=== PATIENT | female | born 1975 | race Caucasian/White ===

== ENCOUNTER 2017-10-03 14:10 | Observation (INO) ==
--- NOTE | 2017-10-03 14:42 | EKG ---
[address] [place] [address] [place] [address] Measurements Intervals [place] Rate: 96 P: 31 TN: 152 QRS: 35 QRSD: 126 T: 48 QT: 337 QTc: 391 Interpretive Statements SINUS RHYTHM RIGHT BUNDLE BRANCH BLOCK [120+ ms QRS DURATION, UPRIGHT V1, 40+ ms S IN I/aVL/V4/V5/V6] No previous ECG available for comparison Electronically Signed On 10-04-17 09:35:33 [facility] by Ayden Marcano [email or web address]
[2017-10-03] MEDS ORDERED: Sodium Chloride 0.9% 1,000 ML PRIMARY IV ONE (14:53)
[2017-10-03] MEDS ORDERED: MORPHINE SULFATE 4 MG/1 ML IVP ONE (14:53)
[2017-10-03] MEDS ORDERED: NORMAL SALINE 10 ML SYRINGE FLUSH IVP PRN ×2 (14:53→17:45)
[2017-10-03 15:30] LABS: BASOPHILS # (AUTO) 0.03 10*3/UL; BASOPHILS % (AUTO) 0.2 % (0-1); EOSINOPHILS # (AUTO) 0.03 10*3/UL; EOSINOPHILS % (AUTO) 0.2 % (0-8); Hematocrit [HCT] 43.3 % (37.0-47.0); Hemoglobin [HGB] 14.9 g/dL (12.0-16.0); LYMPHOCYTES # (AUTO) 1.25 10*3/uL; MEAN CORPUSCULAR HEMOGLOBIN 28.4 PG (27-31); MEAN CORPUSCULAR HGB CONC 34.4 g/dL (33-37); MEAN CORPUSCULAR VOLUME 82.5 FL (81-99); MEAN PLATELET VOLUME 10.4 FL (7.4-12.2); MONOCYTES # (AUTO) 0.69 10*3/UL (0.3-0.8); MONOCYTES % (AUTO) 4.6 % (5-15); NEUTROPHILS # (AUTO) 13.06 10*3/UL; NEUTROPHILS % (AUTO) 86.4 % (50-80); RED BLOOD COUNT 5.25 10^6/uL (4.20-5.40)
[2017-10-03 15:39] LABS: PLATELET MORPHOLOGY COMMENT NORMAL MORPHOLOGY (NORM); RBC MORPHOLOGY COMMENT NORMAL MORPHOLOGY (NORM); WBC MORPHOLOGY COMMENT NORMAL MORPHOLOGY (NORM)
[2017-10-03 15:42] LABS: BLOOD UREA NITROGEN 18 mg/dL (7-22); SERUM ALBUMIN 4.9 g/dL (3.5-4.8)
--- NOTE | 2017-10-03 15:53 | DI ---
EXAM: XR Right Tibia and Fibula, 2 Views CLINICAL HISTORY: Trauma: TECHNIQUE: Frontal and lateral views of the right tibia and fibula. COMPARISON: No relevant prior studies available. FINDINGS: Bones/joints: Mild ankle and calcaneal spurring. No acute fracture. No dislocation. Soft tissues: Unremarkable. No radiopaque foreign body. IMPRESSION: No fracture
[2017-10-03] MEDS ORDERED: cefTRIAXone Inj 2 GM in Sodium Chloride 0.9% 100 ML IV ONE (16:38)
--- NOTE | 2017-10-03 17:27 | PDOC ---
HPI - History of Present Illness Date of Service: 10/03/17 Time of Service: 18:00 Chief Complaint: Swelling, redness and pain right lower extremity 4 days duration History of Present Illness: This is a 42 years old female with medical history significant for history of hypertension, previous right ankle surgery who apparently hit her right leg accidentally against the door of the washing machine was uncomfortable after that for about 2 or 3 days but then she started to notice some swelling redness and warmth to the leg mostly yesterday. Today she is noticing that it hurts when she put weight on it, she had some fever and because of that she came into the ER evaluation revealed cellulitis was given antibiotics and was admitted. She rates her pain currently 5 out of 10. There was no drainage. Past Medical History Medical History: 1. Hypertension she had for 13 years on oral antihypertensive medications Surgical History: 1. History of for hysterectomy and the uterine ablations before. 2. History of bilateral carpal tunnel surgeries. 3. History of tonsillectomy. 4. History of surgery to the right ankle 2014. Pertinent Family History: History of hypertension in father Past Social History: Does not smoke, occasionally drink, no drugs. Tobacco Use: Former Smoker In the Past 12 Months, Have Used or Abuse Any of the Following Substance: None Alcohol Use: Occasionally Medication / Allergies Home Medications: Home Medications Medication Instructions Recorded Confirmed Type Vitamin B Complex 1 ea PO QD tab 11/20/14 10/03/17 History Estropipate 1 tab PO QD #90 tab 12/30/16 10/03/17 Rx Lisinopril/Hydrochlorothiazide 1 tab PO QD #90 tab 12/30/16 10/03/17 Rx [Lisinopril-Hctz 20-25 Mg Tab] Allergies/Adverse Reactions: Allergies 3 Allergy/AdvReac Type Severity Reaction Status Date / Time No Known Drug Allergies Allergy NOT Verified 10/03/17 17:40 APPLICABLE Review of Systems - Review of Systems All Systems: Reviewed & No Additional Complaints Except as Stated Exam - General General Appearance: No Acute Distress, Cooperative, Obese - Head Head Exam: Normal Inspection, Atraumatic - Eye Eye Exam: POSITIVE: Normal Appearance - ENT ENT Exam: POSITIVE: Normal Exam - Neck Neck Exam: Normal Inspection - Respiratory Respiratory Exam: POSITIVE: Clear to Auscultation - Bilaterally - Cardiovascular Cardiovascular Exam: POSITIVE: RRR - GI/Abdominal GI/Abdominal Exam: POSITIVE: Normal Bowel Sounds, Non Tender, Non Distended, Soft, No Organomegaly Additional GI/Abdominal Exam Details: Some mild lymph node enlargement in the right inguinal area of somewhat tender. - Rectal Rectal Exam: POSITIVE: Deferred - External Exam: POSITIVE: Deferred - Extremities Additional Extremities Exam Details: An area of redness, warmth noted on the top of the right foot in addition also on the lateral aspect of the right leg. It is tender is no fluctuation no drainage. There is swelling also noted. - Back Back Exam: POSITIVE: Normal Inspection - Neurological Neurological Exam: POSITIVE: Alert, Oriented x 3, CN II-XII Intact, Speech Intact / Clear, Moves All Extremities Equally - Psychiatric Psychiatric Exam: POSITIVE: Normal Affect - Integumentary Additional Integumentary Exam Details: An area of cellulitis in the right lower extremity also with the swelling dorsum of the right Results - Labs CBC and BMP: 10/03/17 15:20 10/03/17 15:20 Assessment and Plan - Patient Problems (1) Cellulitis of right leg Current Visit: Yes Status: Acute Comment: She was started on antibiotics with Rocephin will continue with it. Will put her on some IV fluid. Repeat labs in the morning. will check MRSA nasal carraiage. Code(s): L03.115 - Cellulitis of right lower limb (2) Hypertension Current Visit: Yes Status: Acute Comment: We'll see what her blood pressure tomorrow and then will decide if we can restart her blood pressure medications Code(s): I10 - Essential (primary) hypertension
[2017-10-03] MEDS ORDERED: LIDOCAINE W/ SODIUM BICARB 0.5 ML SYR SUBD PRN (17:45)
[2017-10-03] MEDS ORDERED: CALCIUM CARBONATE 500 MG (TUMS) CHEWABLE TABLET PO PRN (17:45)
[2017-10-03] MEDS ORDERED: ONDANSETRON 4 MG/2 ML VIAL IVP PRN (17:45)
[2017-10-03] MEDS ORDERED: DOCUSATE 100 MG CAPSULE PO PRN (17:45)
[2017-10-03] MEDS: Lactated Ringers 1,000 ML PRIMARY IV SCH (18:04)
[2017-10-03] MEDS: ACETAMINOPHEN 325 MG TABLET PO PRN ×2 (18:07→23:02)
[2017-10-03] MEDS ORDERED: HYDROcodone-APAP 5 MG -325 MG TABLET PO PRN (18:13)
[2017-10-03] MEDS ORDERED: KETOROLAC 15 MG/1 ML VIAL IVP PRN (18:13)
[2017-10-03] MEDS ORDERED: Lactated Ringers 500 ML PRIMARY IV ONE (19:10)
[2017-10-04] MEDS: Lactated Ringers 1,000 ML PRIMARY IV SCH ×3 (01:27→15:12)
--- NOTE | 2017-10-04 02:57 | PDOC ---
Lower Extremity Problem HPI - General Chief Complaint: General Medical Stated Complaint: right leg pain, heart racing Date Seen by Provider: 10/03/17 Time Seen by Provider: 14:30 Source: POSITIVE: Patient Exam Limitations: POSITIVE: No limitations Nurse's Notes Reviewed & Considered: Yes - History of Present Illness Initial Comments: The patient is a 42-year-old female. She states that she struck her right lower leg against a podiatric technician approximately 4 days ago. Over the last 2 days she has developed painful redness and swelling and warmth over the anterior and lateral aspect of her right lower leg, around the site of trauma. The apparent cellulitis has extended into the dorsum of her right foot. She also complains of some pain in the right groin. She complains of fever and myalgia. Body Location Affected: REPORTS: Upper Extremity (R) (As above) Timing: REPORTS: Gradual, Getting Worse Duration: <1 week (4 days) Severity: Moderate Recent Injury: REPORTS: Yes (As above) Context of Injury: REPORTS: Direct Blow Location at Time of Onset: REPORTS: Work Quality: REPORTS: "Pain" (Pain to right lower leg and groin; diffuse myalgia) Modifying Factors: REPORTS: Other (Pain is exacerbated by pressure and direct palpation) Associated Symptoms: DENIES: Chest Pain, Shortness of Breath, Rapid Heart Rate, Fainting, Other Similar Symptoms Previously: No Recent Care Received: REPORTS: Denies Any Prior Injuries Related to Current Complaint?: No - Patient Home Medications Home Medications: Home Medications Vitamin B Complex 1 ea PO QD tab 11/20/14 Estropipate 1 tab PO QD #90 tab 12/30/16 Lisinopril/Hydrochlorothiazide [Lisinopril-Hctz 20-25 Mg Tab] 1 tab PO QD #90 tab 12/30/16 - Patient Allergies Allergies/Adverse Reactions: Allergies 3 Allergy/AdvReac Type Severity Reaction Status Date / Time No Known Drug Allergies Allergy NOT Verified 10/03/17 17:40 APPLICABLE Past Medical History - heen HEENT History: Denies History Cardiovascular History: Hypertension, Hyperlipidemia Respiratory History: Snoring Gastrointestinal History: GERD Additional Gastrointestinal History: OCCASIONAL HEARTBURN Genitourinary History: Denies History Endocrine History: Denies History Musculoskeletal History: Joint Pain, Other (please comment) Prosthesis or Implant: Yes (RIGHT ANKLE) Additional Musculoskeletal History: RIGHT ANKLE PAIN Neurological History: Denies History Blood Disorders: Denies History Psychiatric History: Depression History of Sexually Transmitted Diseases: No Female Reproductive History: Tubal Ligation, Hysterectomy Obstetrical History: Denies History Cancer History: Denies History In Past Year Been Physically Harmed or Verbally Threatened: No History of MDRO: No History of Other Communicable Diseases: No Tobacco Use: Former Smoker Alcohol Use: Occasionally Type of alcohol normally used: Beer In the Past 12 Months, Have Used or Abuse Any Substance: None Previous Surgical History: Yes Type / Date of Surgery: RIGHT ANKLE SX/ ENDOMETRIAL ABLATION/ HYST WITH BSO/ TONSILLECTOMY/ RIGHT INDEX FINGER CYST EXCISION/ CERCLAGE/AJ CTR 2014/TUBAL/ Anesthesia Reactions: No Malignant Hyperthermia: No Significant Family History: Hypertension Additional Family History: HYPERLIPIDEMIA Past Medical History Reviewed: Reviewed - No Changes ROS - Limitations ROS Limitations: No Limitations Constitution: REPORTS: Chills, Fever Cardiovascular: REPORTS: Denies Cardiac Symptoms Respiratory: REPORTS: Denies Resp Symptoms Neurological: REPORTS: Denies Neuro Symptoms Gastrointestinal: REPORTS: Denies GI Symptoms Endocrine: REPORTS: Denies Symptoms Musculoskeletal: REPORTS: Recent Injury, Other (Pain right lower leg) Genitourinary: REPORTS: Denies Symptoms Eyes: REPORTS: Denies Symptoms ENT: REPORTS: Denies Symptoms Skin: REPORTS: Other (Cellulitis right lower leg, anterior and lateral aspects and dorsum right foot) Lympathic: REPORTS: Swollen Glands (Right inguinal) Immunologic: POSITIVE: Denies Symptoms Psychiatric: POSITIVE: Denies Psych Symptoms Lower Ext Problem Exam - General Appearance General Appearance: POSITIVE: Alert, Cooperative, No Acute Distress, No Evidence of Trauma - Extremities Lower Extremity: POSITIVE: Tenderness, Swelling (Erythema with warmth and tenderness on palpation anterior and lateral aspect of right lower leg and dorsum of foot.) Joint Exam: POSITIVE: Joints Normal, Normal ROM, Normal Gait, Normal Weight Bearing Vascular: POSITIVE: Full Pulses. 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 Nml, Pharynx Inspect. Nml, PERRL, EOMI - Respiratory / CVS Respiratory / CVS: POSITIVE: No Respiratory Distress, Breath Sounds Normal, Regular Rate/Rhythm, Heart Sounds Normal Peripheral Pulses: Radial (R): 2+, Radial (L): 2+, Dorsalis-pedis (R): 2+, Dorsalis-pedis (L): 2+ - Abdomen Abdomen: Soft: (All Quadrants), Normal Bowel Sounds: (All Quadrants), Denies Tenderness: (All Quadrants), No Splenomegaly: (All Quadrants), No Hepatomegaly: (All Quadrants), No Guarding: (All Quadrants), No Rebound: (All Quadrants), No Palpable Pulse: (All Quadrants), No Palpabale Mass: (All Quadrants), No Distention: (All Quadrants), No Rigidity: (All Quadrants) Images - Uploaded Photos Uploaded Photos: - Lower Extremities Lower Extremities: 1 - Cellulitis 2 - Discomfort on palpation with adenopathy Lower Ext Problem Progress - Results Reviewed by me Xrays/CTs/US Reviewed by me: Yes Discussed with Radiologist: Yes Radiology Findings: X-ray right tib-fib normal Lab Results Reviewed by Me: Yes (influenza negative, lactate 1.7, CRP 3.1) CBC and BMP: 10/03/17 15:20 10/03/17 15:20 EKG Interpreted/Reviewed By Me:: Yes EKG Interpretation:: POSITIVE: Normal Sinus Rhythm, Normal Intervals, Normal [place], Normal QRS, Normal ST/T, Abnormal EKG (Sinus tachycardia). NEGATIVE: Normal Rate (96/m) - Patient's Progress School/Work Release Addressed: POSITIVE: Not Applicable Re-Examine Time: 16:40 Re-Examine Comment: Case discussed with hospitalist; patient admitted. 2 g Rocephin ordered IV Status: POSITIVE: Unchanged, Re-Examined - Consult Consult (If Yes, Name of Consulting MD & Time Called): Yes (Dr. Michael, hospitalist, [id number]) Consulting MD will see pt:: POSITIVE: [facility] Admit Counseled: POSITIVE: Patient, Family, RE: Lab Results, RE: DX, RE: Need for F/U Patient Care Time - Estimated PCT Patient Care Time (In Minutes): 50 Vital Signs - VS Reviewed Vital Signs Reviewed: Yes Discharge Clinical Impression: Laceration of face Discharge Disposition: Discharged to Home Condition: Stable
[2017-10-04 04:55] LABS: BASOPHILS # (AUTO) 0.03 10*3/UL; BASOPHILS % (AUTO) 0.3 % (0-1); EOSINOPHILS # (AUTO) 0.01 10*3/UL; EOSINOPHILS % (AUTO) 0.1 % (0-8); Hematocrit [HCT] 38.4 % (37.0-47.0); Hemoglobin [HGB] 12.9 g/dL (12.0-16.0); LYMPHOCYTES # (AUTO) 1.44 10*3/uL; MEAN CORPUSCULAR HEMOGLOBIN 27.9 PG (27-31); MEAN CORPUSCULAR HGB CONC 33.6 g/dL (33-37); MEAN CORPUSCULAR VOLUME 83.1 FL (81-99); MEAN PLATELET VOLUME 10.8 FL (7.4-12.2); MONOCYTES # (AUTO) 0.59 10*3/UL (0.3-0.8); MONOCYTES % (AUTO) 5.8 % (5-15); NEUTROPHILS # (AUTO) 8.08 10*3/UL; NEUTROPHILS % (AUTO) 79.4 % (50-80); RED BLOOD COUNT 4.62 10^6/uL (4.20-5.40)
[2017-10-04 05:02] LABS: PLATELET MORPHOLOGY COMMENT NORMAL MORPHOLOGY (NORM); RBC MORPHOLOGY COMMENT NORMAL MORPHOLOGY (NORM); WBC MORPHOLOGY COMMENT NORMAL MORPHOLOGY (NORM)
--- NOTE | 2017-10-04 07:21 | PDOC(PROG) ---
Date and Time of Service: 10/04/2017 7:19 AM Interval History: Subjective Patient feels better in terms of the pain it is less intense compared to what it was. There is no pain while laying in bed there is some pain she said when she walk on it. The redness on the right lower leg seem to be resolved the only thing left is the one on the dorsum of the right foot. Overall she feels better. The pain in the inguinal area also seemed to be improved. Objective : Data - Labs CBC and BMP: 10/04/17 04:10 10/03/17 15:20 Objective : Exam - General General Appearance: No Acute Distress, Cooperative, Obese - Head Head Exam: Normal Inspection, Atraumatic - Eye Eye Exam: Normal Appearance - ENT ENT Exam: Normal Exam - Neck Neck Exam: Normal Inspection - Respiratory Respiratory Exam: Clear to Auscultation - Bilaterally - Cardiovascular Cardiovascular Exam: RRR - GI/Abdominal GI/Abdominal Exam: Normal Bowel Sounds, Non Tender, Non Distended, Soft, No Organomegaly - Rectal Rectal Exam: Deferred - External Exam: Deferred - Extremities Additional Extremities Exam Details: The redness in the right lower leg seem to be improved compared to last night. There is some swelling and redness to the dorsum of the right foot still. There is some tenderness still there. The tenderness in the right inguinal area seemed to be also less than last night. - Back Back Exam: Normal Inspection - Neurological Neurological Exam: Alert, Oriented x 3, CN II-XII Intact, Speech Intact / Clear , Moves All Extremities Equally - Psychiatric Psychiatric Exam: Normal Affect Assessment and Plan - Patient Problems (1) Cellulitis of right leg Current Visit: Yes Status: Acute Comment: will will continue current antibiotics. Her white count is down which is a good sign. I Think we'll cut back on the fluid and then maybe stop it lateron during the day. Code(s): L03.115 - Cellulitis of right lower limb (2) Hypertension Current Visit: Yes Status: Acute Comment: I think we'll hold off on her blood pressure medications today. Code(s): I10 - Essential (primary) hypertension
[2017-10-04] MEDS: cefTRIAXone Inj 2 GM in Sodium Chloride 0.9% 100 ML IV SCH (15:27)
[2017-10-04] MEDS: ACETAMINOPHEN 325 MG TABLET PO PRN (18:53)
[2017-10-05 04:57] LABS: BASOPHILS # (AUTO) 0.04 10*3/UL; BASOPHILS % (AUTO) 0.6 % (0-1); EOSINOPHILS % (AUTO) 3.2 % (0-8); Hemoglobin [HGB] 12.6 g/dL (12.0-16.0); LYMPHOCYTES # (AUTO) 1.89 10*3/uL; MEAN CORPUSCULAR HEMOGLOBIN 27.8 PG (27-31); MEAN CORPUSCULAR HGB CONC 33.2 g/dL (33-37); MEAN CORPUSCULAR VOLUME 83.7 FL (81-99); MEAN PLATELET VOLUME 10.6 FL (7.4-12.2); MONOCYTES # (AUTO) 0.54 10*3/UL (0.3-0.8); MONOCYTES % (AUTO) 8.8 % (5-15); NEUTROPHILS # (AUTO) 3.49 10*3/UL; NEUTROPHILS % (AUTO) 56.6 % (50-80); RED BLOOD COUNT 4.54 10^6/uL (4.20-5.40)
[2017-10-05 04:58] LABS: PLATELET MORPHOLOGY COMMENT NORMAL MORPHOLOGY (NORM); RBC MORPHOLOGY COMMENT NORMAL MORPHOLOGY (NORM); WBC MORPHOLOGY COMMENT NORMAL MORPHOLOGY (NORM)
[2017-10-05 05:07] LABS: BLOOD UREA NITROGEN 17 mg/dL (7-22); BUN/CREATININE RATIO 21.25 (6-20)
--- NOTE | 2017-10-05 08:16 | DCSUMMARY ---
Hospitalization Summary Admit Date: 10/03/2017 Discharge Date: 10/05/17 Hospital Course: Discharge diagnoses 1. Cellulitis of the right lower leg 2. Hypertension 3. History of previous ankle surgery Hospital course This is a 42 years old female medical history significant for history of hypertension and previous history of right ankle surgery who apparently hit her right leg accidentally against a door of the washing machine was uncomfortable after that for about 2 or 3 days, then she started to notice some swelling, redness and warmth to the leg mostly the day before admission. On the day she presented to the hospital she noticed that it hurts when she puts weight on it, she had fever and because of that she came into the ER. Evaluation in the ER revealed cellulitis she was given antibiotics and was admitted. She rated her pain between 5 out of 10 when I saw her. Exam was remarkable for area of cellulitis in the right lower extremity with swelling mostly on the right foot. The area was tender especially the dorsum of the right foot. There was no fluctuation. Her white count was 15,000 when she came in. we put her on IV antibiotics, blood culture remain negative. It was gradual improvement in her symptom in terms of the pain and the redness. The day of the discharge her the redness on the leg resolved but she had some spots on the dorsum of the foot still some tenderness but it's less than before. Overall she felt much better when than when she came in, her fever resolved.. We'll give another dose of IV Rocephin and then will discharge her on oral Keflex. I did tell her to follow-up with her primary to make sure that the she continued to improve. Laboratory Results 10/05/17 10/05/17 Range/Units 04:07 04:07 WBC 6.17 (4.8-10.8) 10^3/uL RBC 4.54 (4.20-5.40) 10^6/uL Hgb 12.6 (12.0-16.0) g/dL Hct 38.0 (37.0-47.0) % MCV 83.7 (81-99) FL MCH 27.8 (27-31) PG MCHC 33.2 (33-37) g/dL RDW Std Deviation 40.2 (39-50) fL RDW Coeff of Td 13.3 (11.5-14.5) % Plt Count 229 (140-350) 10*3/uL MPV 10.6 (7.4-12.2) FL Immature Gran % (Auto) 0.2 (0-5) % Neut % (Auto) 56.6 (50-80) % Lymph % (Auto) 30.6 (10-50) % [place] % (Auto) 8.8 (5-15) % Eos % (Auto) 3.2 (0-8) % Baso % (Auto) 0.6 (0-1) % Immature Gran # (Auto) 0.01 10*3/UL Neut # (Auto) 3.49 10*3/UL Lymph # (Auto) 1.89 10*3/uL [place] # (Auto) 0.54 (0.3-0.8) 10*3/UL Eos # (Auto) 0.20 10*3/UL Baso # (Auto) 0.04 10*3/UL WBC Morphology Comment Normal morphology (NORM) Plt Morphology Comment Normal morphology (NORM) RBC Morph Comment Normal morphology (NORM) Sodium 144 (135-145) meq/L Potassium 3.6 L (3.8-5.2) meq/L Chloride 111 (98-112) meq/L Carbon Dioxide 24 (23-33) meq/L Anion Gap 9 (5-20) BUN 17 (7-22) mg/dL Creatinine 0.8 (0.50-1.20) mg/dL Estimated GFR > 60 (>60 ml/min/1.73m(2)) BUN/Creatinine Ratio 21.25 H (6-20) Glucose 112 H (78-110) mg/dL Calculated Osmolality 300.0 H (267-292) mOsm/kg Calcium 8.7 (8.7-10.7) mg/dL Discharge instruction Diet regular Activity as started Medications Home Medications Medication Instructions Recorded Confirmed Type Vitamin B Complex 1 ea PO QD tab 11/20/14 10/03/17 History Estropipate 1 tab PO QD #90 tab 12/30/16 10/03/17 Rx Lisinopril/Hydrochlorothiazide 1 tab PO QD #90 tab 12/30/16 10/03/17 Rx [Lisinopril-Hctz 20-25 mg Tab] Cephalexin [Keflex] 500 mg PO Q6H #28 cap 10/05/17 Rx Follow-up with PCP in 1-2 weeks Condition at discharge was stable for discharge Exam - Vitals Vital Signs: Vital Signs Temperature 98.2 F Temperature Source Oral Pulse Rate [Pulse Oximeter 88 Left] Pulse Rate 107 Respiratory Rate 20 Blood Pressure [Right Arm] 144/88 Blood Pressure [Left Arm] 113/79 Blood Pressure 127/78 Pulse Ox 97 Oxygen Delivery Method Room Air Height 5 ft 2 in Weight 226 lb Patient Problems - Patient Problem List (1) Cellulitis of right leg Current Visit: Yes Status: Acute Code(s): L03.115 - Cellulitis of right lower limb Category: Medical (2) Hypertension Current Visit: Yes Status: Acute Code(s): I10 - Essential (primary) hypertension Category: Medical
[2017-10-05] MEDS ORDERED: HYDROCHLOROTHIAZIDE 25 MG TABLET PO SCH (09:00)
[2017-10-05] MEDS ORDERED: LISINOPRIL 20 MG TABLET PO SCH (09:00)
[2017-10-05] MEDS ORDERED: ESTROPIPATE PO SCH (09:00)
[2017-10-05 12:46] VITALS: BP 98/78; RESP 16; TEMP 97.4; O2SAT 97
[2017-10-05] MEDS: cefTRIAXone Inj 2 GM in Sodium Chloride 0.9% 100 ML IV SCH (15:28)
== END 2017-10-05 16:20 | disposition home or self-care (01) ==
LOC: ER 14:10 → INTOOBSV 16:39 → MED/SURG 16:39
PROVIDERS: ADMIT Internal Medicine; ATTEND Internal Medicine